=== PATIENT | male | born 1990 | race Caucasian/White ===

== ENCOUNTER 2019-12-02 14:57 | Emergency (ER) | payer BC ==
--- NOTE | 2019-12-02 15:26 | EDM.PDOC ---
ED HPI GENERAL MEDICAL PROBLEM - General Chief Complaint: Respiratory Problem Stated Complaint: RESPIRATORY ISSUES Time Seen by Provider: 12/02/19 15:03 Source of Information: Reports: Patient, Family History Limitations: Reports: No Limitations - History of Present Illness INITIAL COMMENTS - FREE TEXT/NARRATIVE: The patient presents with a cough, congestion, fever and body aches. This started a couple days ago but this morning he developed generalized body aches. He has a history of seizures and has not been taking his medications like he should because they cost so much. He has a scratchy throat but no ear pain. He has no chest pain, abdominal pain, nausea or vomiting. He does have some shortness of breath at times. He did get a flu shot this year. Onset: Gradual Duration: Day(s): Location: Reports: Generalized Quality: Reports: Ache, Other (Cramping) Severity: Moderate Improves with: Reports: None Worsens with: Reports: None Associated Symptoms: Reports: Cough, Fever/Chills, Shortness of Breath. Denies : Chest Pain, Headaches, Malaise, Nausea/Vomiting - Related Data Allergies Allergy/AdvReac Type Severity Reaction Status Date / Time No Known Allergies Allergy Verified 12/02/19 15:03 Home Meds: Home Meds Amphetamine Salts. 30 mg PO BID 12/02/19 [History] LORazepam 1 mg PO DAILY PRN 12/02/19 [History] Lisinopril [Zestril] 20 mg PO DAILY 12/02/19 [History] OXcarbazepine [Trileptal] 300 mg PO BID 12/02/19 [History] Past Medical History Cardiovascular History: Reports: Hypertension Neurological History: Reports: Seizure Psychiatric History: Reports: ADHD, Anxiety Social & Family History - Tobacco Use Smoking Status *Q: Current Every Day Smoker Years of Tobacco use: 13 Packs/Tins Daily: 1.5 - Recreational Drug Use Recreational Drug Use: No ED ROS GENERAL - Review of Systems Review Of Systems: See Below Constitutional: Reports: Fever, Chills HEENT: Reports: No Symptoms Respiratory: Reports: Shortness of Breath, Cough Cardiovascular: Reports: No Symptoms Endocrine: Reports: No Symptoms GI/Abdominal: Reports: No Symptoms : Reports: No Symptoms Musculoskeletal: Reports: No Symptoms ED EXAM, GENERAL - Physical Exam Exam: See Below Exam Limited By: No Limitations General Appearance: Alert, No Apparent Distress Ears: Normal External Exam Nose: Normal Inspection Throat/Mouth: Normal Inspection Head: Atraumatic, Normocephalic Neck: Normal Inspection, Supple, Non-Tender Respiratory/Chest: No Respiratory Distress, Lungs Clear, Normal Breath Sounds Cardiovascular: Regular Rate, Rhythm, No Edema, No Murmur GI/Abdominal: Soft, Non-Tender, No Organomegaly, No Mass Back Exam: Normal Inspection Extremities: Normal Inspection Course - Vital Signs Last Recorded V/S: Last Vital Signs Temp 99.2 F 12/02/19 15:03 Pulse 103 H 12/02/19 15:03 Resp 18 12/02/19 15:03 BP 153/78 H 12/02/19 15:03 Pulse Ox 97 12/02/19 15:03 - Orders/Labs/Meds Orders: Active Orders 24 hr Category Date Time Status CXR [Chest 2V] [CR] Stat Exams 12/02/19 15:20 Taken - Re-Assessments/Exams Free Text/Narrative Re-Assessment/Exam: 12/02/19 15:26 I ordered an influenza and a CXR. 12/02/19 16:11 His influenza is negative. His CXR shows a bronchitis versus early pneumonia. Departure - Departure Time of Disposition: 16:15 Disposition: Home, Self-Care 01 Condition: Good Clinical Impression: Pneumonia Qualifiers: Pneumonia type: due to unspecified organism Laterality: right Lung location: middle lobe of lung Qualified Code(s): J18.9 - Pneumonia, unspecified organism - Discharge Information *PRESCRIPTION DRUG MONITORING PROGRAM REVIEWED*: No *COPY OF PRESCRIPTION DRUG MONITORING REPORT IN PATIENT DEREK: No Referrals: PCP,None [Primary Care Provider] - Adriana Wang PA-C [Physician Spa Consultant] - 1 Week Forms: ED Department Discharge Additional Instructions: Take the zithromax 2 pills today and then 1 pill a day for 4 more days. Take the phenergan with codeine 5 to 10mls every 6 hours as needed for cough. Take your seizure meds as prescribed. When you are sick, you are more prone to having seizures. Please return if you are worse. Sepsis Event Note - Evaluation Sepsis Screening Result: No Definite Risk - Focused Exam Vital Signs: Vital Signs Temp Pulse Resp BP Pulse Ox 12/02/19 15:03 99.2 F 103 H 18 153/78 H 97 Date Exam was Performed: 12/02/19 Time Exam was Performed: 16:11 - My Orders Last 24 Hours: My Active Orders 12/02/19 15:20 CXR [Chest 2V] [CR] Stat - Assessment/Plan Last 24 Hours: My Active Orders 12/02/19 15:20 CXR [Chest 2V] [CR] Stat
--- NOTE | 2019-12-03 08:32 | CR ---
Chest: Two views of the chest were obtained. Comparison: No prior chest x-ray. Increased density is noted within the right midlung. Left lung is clear. Heart size and mediastinum are normal. Bony structures are unremarkable. Impression: 1. Right midlung pneumonia is felt to be present. Diagnostic code #3 This report was dictated in [place] Standard Time
== END 2019-12-02 16:35 | disposition home or self-care (01) ==
LOC: JD.ED 14:57
DX: J18.9 Pneumonia, unspecified organism (principal); F17.210 Nicotine dependence, cigarettes, uncomplicated
CPT/HCPCS: 71046; 71046-26; 87804; 99283; 99285-25

== ENCOUNTER 2020-03-11 20:09 | Emergency (ER) | payer BC ==
--- NOTE | 2020-03-11 21:12 | EDM.PDOC ---
ED HPI GENERAL MEDICAL PROBLEM - General Chief Complaint: Respiratory Problem Stated Complaint: SOB/EARS RINGING/POUNDING IN HEAD Time Seen by Provider: 03/11/20 20:35 Source of Information: Reports: Patient, RN Notes Reviewed History Limitations: Reports: No Limitations - History of Present Illness INITIAL COMMENTS - FREE TEXT/NARRATIVE: Patient is a 29-year-old male who presents to the ED for the evaluation of a few different complaints. The patient states that he does have a history of anxiety, and is taking hydroxyzine, and lorazepam as needed. He states he did see has normal provider, Dr. Gerardo Lopez today, and was started on the hydroxyzine, so this was his first dose. Patient states he thought maybe it helped a little bit, but he still feels like he cannot catch a deep breath. He notes he is a smoker as well. Patient characterizes this shortness of breath as a feeling of impending doom of sorts. The patient states that he has had these feelings present for mostly the whole week. He does note that he does have a girlfriend at home, and she is doing 3 weeks, he recently got laid off his job, so he has a lot of stress and anxiety at home. Patient notes that he does not have a history of any sort of lung issues, but he states that he does have some early heart disease in the father's side of the family, he notes that he thinks his father had a heart attack in his late 30s or early 40s , also his grandfather with the same patient states that he did have a sleep study done back on the [facility] where he used to live, and he was known to have sleep apnea, but he did not follow-up with this due to money. Patient denies any sort of sick contacts that he has had. The patient does note that he would like to be around for his child's , and her life, so he does seem to have a component of anxiety with this as well. Mid-Sternal Chest Pain Score (Numeric/FACES): 6 - Related Data Allergies Allergy/AdvReac Type Severity Reaction Status Date / Time No Known Allergies Allergy Verified 03/11/20 20:22 Home Meds: Home Meds Amphetamine Salts. 30 mg PO BID 12/02/19 [History] LORazepam 1 mg PO DAILY PRN 12/02/19 [History] Lisinopril [Zestril] 20 mg PO DAILY 12/02/19 [History] Escitalopram [Lexapro] 20 mg PO DAILY 03/11/20 [History] hydrOXYzine pamoate [Hydroxyzine Pamoate] 50 mg PO TID PRN 03/11/20 [History] hydrOXYzine pamoate [Hydroxyzine Pamoate] 100 mg PO BEDTIME 03/11/20 [History] Past Medical History Cardiovascular History: Reports: Hypertension Neurological History: Reports: Seizure Psychiatric History: Reports: ADHD, Anxiety - Past Surgical History HEENT Surgical History: Reports: Oral Surgery Other HEENT Surgeries/Procedures: tooth extraction Social & Family History - Tobacco Use Smoking Status *Q: Current Every Day Smoker Years of Tobacco use: 12 Packs/Tins Daily: 2 - Recreational Drug Use Recreational Drug Use: No ED ROS GENERAL - Review of Systems Review Of Systems: See Below Constitutional: Denies: Fever, Chills, Malaise Respiratory: Reports: Shortness of Breath (feels like he can't take a deep breath, is SpO2 on RA is 97%). Denies: Wheezing, Cough, Sputum Cardiovascular: Denies: Chest Pain GI/Abdominal: Denies: Abdominal Pain, Nausea, Vomiting Psychiatric: Reports: Anxiety. Denies: Agitation ED EXAM, GENERAL - Physical Exam Exam: See Below Exam Limited By: No Limitations General Appearance: Alert, WD/WN, No Apparent Distress, Anxious (pt is taking deep sigh type breaths throughout exam but does talk in complete sentences) Eye Exam: Bilateral Eye: EOMI, Normal Inspection, PERRL Ears: Normal External Exam Nose: Normal Inspection Throat/Mouth: Normal Inspection, Normal Lips, Normal Teeth, Normal Gums, Normal Oropharynx, Normal Voice, No Airway Compromise Head: Atraumatic, Normocephalic Neck: Normal Inspection Respiratory/Chest: No Respiratory Distress, Lungs Clear, Normal Breath Sounds, No Accessory Muscle Use, Chest Non-Tender Cardiovascular: Normal Peripheral Pulses, Regular Rate, Rhythm, No Edema, No Murmur Peripheral Pulses: 3+: Radial (L), Radial (R) GI/Abdominal: Normal Bowel Sounds, Soft, Non-Tender, No Distention, No Mass Extremities: Normal Inspection, Normal Capillary Refill Neurological: Alert, Oriented, Normal Cognition, No Motor/Sensory Deficits Psychiatric: Normal Affect, Normal Mood, Anxious (pt is visibly anxious, he is fidgety and takes many deep "sigh" breaths on exam. He is in no obvious respiratory distress.) Skin Exam: Warm, Dry, Intact, Normal Color, No Rash EKG INTERPRETATION EKG Date: 03/11/20 Time: 21:22 Rhythm: NSR Rate (Beats/Min): 81 [place]: Normal P-Wave: Present QRS: Normal ST-T: Normal QT: Normal Comparison: NA - No Prior EKG EKG Interpretation Comments: no acute ischemic change, reviewed by myself and Dr. Faulkner. Course - Vital Signs Last Recorded V/S: Last Vital Signs Temp 97.1 F 03/11/20 20:19 Pulse 103 H 03/11/20 20:19 Resp 19 03/11/20 20:19 BP Pulse Ox 96 03/11/20 20:19 - Orders/Labs/Meds Orders: Active Orders 24 hr Category Date Time Status EKG Documentation Completion [RC] STAT Care 03/11/20 20:57 Ordered Chest 2V [CR] Stat Exams 03/11/20 20:57 Ordered Labs: Laboratory Tests 03/11/20 03/11/20 03/11/20 Range/Units 21:07 21:07 21:07 WBC 19.83 H (4.23-9.07) K/mm3 RBC 4.92 (4.63-6.08) M/mm3 Hgb 15.1 (13.7-17.5) gm/dl Hct 45.3 (40.1-51.0) % MCV 92.1 (79.0-92.2) fl MCH 30.7 (25.7-32.2) pg MCHC 33.3 (32.2-35.5) g/dl RDW Std Deviation 46.1 H (35.1-43.9) fL Plt Count 341 H (163-337) K/mm3 MPV 9.4 (9.4-12.3) fl Neutrophils % (Manual) 71 H (40-60) % Band Neutrophils % 0 (0-10) % Lymphocytes % (Manual) 21 (20-40) % Atypical Lymphs % 0 % Monocytes % (Manual) 7 (2-10) % Eosinophils % (Manual) 1 (0.8-7.0) % Basophils % (Manual) 0 L (0.2-1.2) Platelet Estimate Adequate RBC Morph Comment Normal PT 9.6 L (9.7-12.0) SECONDS INR 0.93 APTT 28 (22-31) SECONDS D-Dimer, Quantitative 0.27 (0.19-0.50) mg/L Sodium 140 (136-145) mEq/L Potassium 3.8 (3.5-5.1) mEq/L Chloride 105 (98-107) mEq/L Carbon Dioxide 26 (21-32) mEq/L Anion Gap 12.8 (5-15) BUN 15 (7-18) mg/dL Creatinine 0.9 (0.7-1.3) mg/dL Est Cr Clr Drug Dosing 138.27 mL/min Estimated GFR (MDRD) > 60 (>60) mL/min BUN/Creatinine Ratio 16.7 (14-18) Glucose 121 H (74-106) mg/dL Calcium 8.7 (8.5-10.1) mg/dL Total Bilirubin 0.2 (0.2-1.0) mg/dL AST 23 (15-37) U/L ALT 39 (16-63) U/L Alkaline Phosphatase 100 (46-116) U/L Troponin I < 0.017 (0.00-0.056) ng/mL NT-Pro-B Natriuret Pep (0-125) pg/mL Total Protein 7.0 (6.4-8.2) g/dl Albumin 3.4 (3.4-5.0) g/dl Globulin 3.6 gm/dL Albumin/Globulin Ratio 0.9 L (1-2) /20 Range/Units 21:07 WBC (4.23-9.07) K/mm3 RBC (4.63-6.08) M/mm3 Hgb (13.7-17.5) gm/dl Hct (40.1-51.0) % MCV (79.0-92.2) fl MCH (25.7-32.2) pg MCHC (32.2-35.5) g/dl RDW Std Deviation (35.1-43.9) fL Plt Count (163-337) K/mm3 MPV (9.4-12.3) fl Neutrophils % (Manual) (40-60) % Band Neutrophils % (0-10) % Lymphocytes % (Manual) (20-40) % Atypical Lymphs % % Monocytes % (Manual) (2-10) % Eosinophils % (Manual) (0.8-7.0) % Basophils % (Manual) (0.2-1.2) Platelet Estimate RBC Morph Comment PT (9.7-12.0) SECONDS INR APTT (22-31) SECONDS D-Dimer, Quantitative (0.19-0.50) mg/L Sodium (136-145) mEq/L Potassium (3.5-5.1) mEq/L Chloride (98-107) mEq/L Carbon Dioxide (21-32) mEq/L Anion Gap (5-15) BUN (7-18) mg/dL Creatinine (0.7-1.3) mg/dL Est Cr Clr Drug Dosing mL/min Estimated GFR (MDRD) (>60) mL/min BUN/Creatinine Ratio (14-18) Glucose (74-106) mg/dL Calcium (8.5-10.1) mg/dL Total Bilirubin (0.2-1.0) mg/dL AST (15-37) U/L ALT (16-63) U/L Alkaline Phosphatase (46-116) U/L Troponin I (0.00-0.056) ng/mL NT-Pro-B Natriuret Pep < 5 (0-125) pg/mL Total Protein (6.4-8.2) g/dl Albumin (3.4-5.0) g/dl Globulin gm/dL Albumin/Globulin Ratio (1-2) - Re-Assessments/Exams Free Text/Narrative Re-Assessment/Exam: 03/11/20 21:16 Patient presents to the ED for some ongoing shortness of breath and other concerns. I do believe most of the patient's problems are stemming from anxiety , he states Ativan does not help much with this. I have ordered some labs, chest x-ray and EKG for further evaluation. 03/11/20 21:43 EKG demonstrates normal sinus rhythm with no acute abnormalities noted. Reviewed by myself and Dr. Faulkner. Labs have started to result, white blood cell count is elevated at 19.8, with 71% neutrophils and no bands. Patient's chest x -ray demonstrates no focal infiltrates or other abnormalities. 03/11/20 22:13 The patient's metabolic profile is normal, troponin is negative, BNP is not elevated, coagulation studies are essentially normal d-dimer 0.27, within normal limits. I do believe that the increased white blood cell count is more of a stress reaction in nature, I will discharge the patient home at this time and have him follow-up with his primary care provider next week, and have him continue to take the hydroxyzine as prescribed over the weekend to see if this does not help relieve his symptoms. Departure - Departure Time of Disposition: 22:14 Disposition: Home, Self-Care 01 Condition: Good Clinical Impression: Anxiety about health - Discharge Information *PRESCRIPTION DRUG MONITORING PROGRAM REVIEWED*: No *COPY OF PRESCRIPTION DRUG MONITORING REPORT IN PATIENT DEREK: No Instructions: Living With Anxiety Referrals: Gerardo Lopez Jr, MD [Primary Care Provider] - Forms: ED Department Discharge Additional Instructions: You were evaluated in ER today regarding your ongoing shortness of breath symptoms and suspected anxiety. Your laboratory evaluation at today's ER visit is essentially within normal limits, your white blood cell count was mildly elevated, but this is likely due to an acute stress reaction. This is a normal abnormal finding. Your EKG shows no sign of an HI or heart attack, and your chest x-ray was also within normal limits. There are no lab abnormalities that would suggest that there is any other major abnormality happening today. The symptoms you are feeling are most likely due to increased stress/anxiety/panic attacks in nature. You were started on hydroxyzine by your primary care provider, highly recommend you take these as prescribed over the next few days, and follow-up with him on Saturday if these medications do not seem to be helping much. Please return to the ER at any time if symptoms change or worsen. Sepsis Event Note - Evaluation Sepsis Screening Result: No Definite Risk - Focused Exam Vital Signs: Vital Signs Temp Pulse Resp Pulse Ox 03/11/20 20:19 97.1 F 103 H 19 96 Date Exam was Performed: 03/11/20 Time Exam was Performed: 22:13 - My Orders Last 24 Hours: My Active Orders 03/11/20 20:57 EKG Documentation Completion [RC] STAT Chest 2V [CR] Stat - Assessment/Plan Last 24 Hours: My Active Orders 03/11/20 20:57 EKG Documentation Completion [RC] STAT Chest 2V [CR] Stat
--- NOTE | 2020-03-13 10:49 | CR ---
Chest: 2 views of the chest were obtained. Comparison: Prior chest x-ray of 12/02/19. Heart size and mediastinum are normal. Lungs are clear with no acute parenchymal change. Bony structures are grossly intact. Impression: 1. Nothing acute is appreciated on 2 view chest x-ray. Diagnostic code #1 Study was dictated in MDT
== END 2020-03-11 22:32 | disposition home or self-care (01) ==
LOC: JD.ED 20:09
DX: F41.9 Anxiety disorder, unspecified (principal); I10 Essential (primary) hypertension; F17.210 Nicotine dependence, cigarettes, uncomplicated; Z79.899 Other long term (current) drug therapy
CPT/HCPCS: 36415; 71046; 71046-26; 80053; 83880; 84484; 85007; 85027; 85379; 85610; 85730; 93005; 93010; 99283; 99285-25

== ENCOUNTER 2020-05-03 19:12 | Emergency (ER) | payer BC, MEDICAID ==
--- NOTE | 2020-05-03 19:24 | EDM.PDOC ---
ED HPI GENERAL MEDICAL PROBLEM - General Chief Complaint: ENT Problem Stated Complaint: TOOTH PAIN Time Seen by Provider: 05/03/20 19:22 - History of Present Illness INITIAL COMMENTS - FREE TEXT/NARRATIVE: 29-year-old male presents the emergency room with a dental ache. This is been an on-and-off issue for him. The patient has not been able to get into see a dentist because the COVID situation. His is working on getting him to see 1 in [place] at this time. Generally the patient has poor dentition but is got a couple teeth that are just caused him all sorts of foods at this point. He is using Tylenol and Motrin for pain relief with modest success. Nothing is taking care of the swelling around the teeth.. Patient denies any fevers or chills has not had any significant facial swelling. Right Upper Tooth/Teeth Pain Score (Numeric/FACES): 4 - Related Data Allergies Allergy/AdvReac Type Severity Reaction Status Date / Time No Known Allergies Allergy Verified 05/03/20 19:22 Home Meds: Home Meds Amphetamine Salts. 30 mg PO BID 12/02/19 [History] LORazepam 1 mg PO DAILY PRN 12/02/19 [History] lisinopriL [Zestril] 20 mg PO DAILY 12/02/19 [History] Escitalopram [Lexapro] 20 mg PO DAILY 03/11/20 [History] hydrOXYzine pamoate [Hydroxyzine Pamoate] 50 mg PO TID PRN 03/11/20 [History] hydrOXYzine pamoate [Hydroxyzine Pamoate] 100 mg PO BEDTIME 03/11/20 [History] Amoxicillin 500 mg PO TID #30 tab 05/03/20 [Rx] Past Medical History Cardiovascular History: Reports: Hypertension Neurological History: Reports: Seizure Psychiatric History: Reports: ADHD, Anxiety - Past Surgical History HEENT Surgical History: Reports: Oral Surgery Other HEENT Surgeries/Procedures: tooth extraction ED ROS ENT - Review of Systems Review Of Systems: See Below Constitutional: Reports: No Symptoms HEENT: Reports: Dental Pain Respiratory: Reports: No Symptoms Cardiovascular: Reports: No Symptoms GI/Abdominal: Reports: No Symptoms ED EXAM, ENT - Physical Exam Exam: See Below Exam Limited By: No Limitations General Appearance: Alert, No Apparent Distress Ears: Normal External Exam Nose: Normal Inspection Mouth/Throat: Other (Has poor dentition in general. The 2 right upper teeth towards the rear back of the gum inflammation and tenderness around both of them. There is no obvious drainage at this point) Head: Atraumatic, Normocephalic Neck: Normal Inspection, Supple, Non-Tender. No: Lymphadenopathy (L), Lymphadenopathy (R) Respiratory/Chest: No Respiratory Distress, Lungs Clear, Normal Breath Sounds Cardiovascular: Normal Peripheral Pulses, Regular Rate, Rhythm, No Edema Course - Vital Signs Last Recorded V/S: Last Vital Signs Temp 36.6 C 05/03/20 19:19 Pulse 84 05/03/20 19:19 Resp 16 05/03/20 19:19 BP 141/93 H 05/03/20 19:19 Pulse Ox 96 05/03/20 19:19 - Re-Assessments/Exams Free Text/Narrative Re-Assessment/Exam: 05/03/20 19:36 We will get him on antibiotics and strongly encouraged him to get into see his dentist. Departure - Departure Time of Disposition: 19:39 Disposition: Home, Self-Care 01 Clinical Impression: Dental caries - Discharge Information Referrals: PCP,None [Primary Care Provider] - Forms: ED Department Discharge Additional Instructions: Return to the emergency room with any questions problems worsening symptoms. Take the antibiotics as directed. Follow-up with a dentist as soon as you can this is ultimately can be what fixes your problem. Sepsis Event Note - Focused Exam Vital Signs: Vital Signs Temp Pulse Resp BP Pulse Ox 05/03/20 19:19 36.6 C 84 16 141/93 H 96 Date Exam was Performed: 05/03/20 Time Exam was Performed: 19:34
== END 2020-05-03 19:55 | disposition home or self-care (01) ==
LOC: JD.ED 19:12
DX: K02.9 Dental caries, unspecified (principal); I10 Essential (primary) hypertension; F41.9 Anxiety disorder, unspecified; Z79.899 Other long term (current) drug therapy
CPT/HCPCS: 99282

== ENCOUNTER 2020-05-08 19:21 | Emergency (ER) | payer MEDICAID ==
[2020-05-08] MEDS ORDERED: cefTRIAXone 1 GM, Lidocaine 1% 2.1 ML IM SCH ×2 (19:45)
--- NOTE | 2020-05-08 19:58 | EDM.PDOC ---
ED HPI GENERAL MEDICAL PROBLEM - General Chief Complaint: ENT Problem Stated Complaint: TOOTH PAIN Time Seen by Provider: 05/08/20 19:33 Source of Information: Reports: Patient History Limitations: Reports: No Limitations - History of Present Illness INITIAL COMMENTS - FREE TEXT/NARRATIVE: TRIAGE NOTE -- Pt has a toothache, right upper molar; was seen eariler this week in ED for same issue. [ End ] As above. Risk factors considered to be cigarette smoking and dental neglect on patient's part. Dental issues are chronic. He was prescribed amoxicillin a few days ago and is still taking it. Pain is continuing to get worse. No fever. No foul odor. No facial swelling. No fever. No other symptom of acute medical illness otherwise. He is noted to be taking Chantix trying to quit smoking. Right Oral/Mouth Pain Score (Numeric/FACES): 10 - Related Data Allergies Allergy/AdvReac Type Severity Reaction Status Date / Time No Known Allergies Allergy Verified 05/08/20 19:29 Home Meds: Home Meds Amphetamine Salts. 30 mg PO BID 12/02/19 [History] LORazepam 1 mg PO DAILY PRN 12/02/19 [History] lisinopriL [Zestril] 20 mg PO DAILY 12/02/19 [History] Escitalopram [Lexapro] 20 mg PO DAILY 03/11/20 [History] hydrOXYzine pamoate [Hydroxyzine Pamoate] 50 mg PO TID PRN 03/11/20 [History] hydrOXYzine pamoate [Hydroxyzine Pamoate] 100 mg PO BEDTIME 03/11/20 [History] Amoxicillin 500 mg PO TID #30 tab 05/03/20 [Rx] Past Medical History Cardiovascular History: Reports: Hypertension Neurological History: Reports: Seizure Psychiatric History: Reports: ADHD, Anxiety - Past Surgical History HEENT Surgical History: Reports: Oral Surgery Other HEENT Surgeries/Procedures: tooth extraction, hard of hearing Social & Family History - Tobacco Use Smoking Status *Q: Heavy Tobacco Smoker Years of Tobacco use: 12 Packs/Tins Daily: 2 - Caffeine Use Caffeine Use: Reports: Coffee, Energy Drinks, Soda - Recreational Drug Use Recreational Drug Use: No ED ROS ENT - Review of Systems Review Of Systems: Comprehensive ROS is negative, except as noted in HPI. ED EXAM, ENT - Physical Exam Exam: See Below Exam Limited By: No Limitations General Appearance: Alert, WD/WN, No Apparent Distress Eye Exam: Bilateral Eye: EOMI, PERRL Ears: Normal External Exam, Hearing Loss (Chronic) Nose: Normal Inspection Mouth/Throat: Other (Number of missing teeth. Pain referable to #5 which is tender to light percussion. No discharge. No odontogenic soft tissue infection noted. No obvious dental abscess.) Head: Atraumatic, Normocephalic Neck: Normal Inspection, Supple Respiratory/Chest: No Respiratory Distress, Normal Breath Sounds, No Accessory Muscle Use Cardiovascular: Normal Peripheral Pulses, Regular Rate, Rhythm GI/Abdominal: Soft, Non-Tender Back: Normal Inspection Extremities: Normal Inspection Neurological: Alert, Oriented, Normal Cognition, Other (Hearing loss as noted, chronic.) Psychiatric: Normal Affect Skin: Warm, Dry Course - Vital Signs Last Recorded V/S: Last Vital Signs Temp 36.1 C 05/08/20 19:29 Pulse 98 05/08/20 19:29 Resp 20 05/08/20 19:29 BP 164/75 H 05/08/20 19:29 Pulse Ox 100 05/08/20 19:29 - Orders/Labs/Meds Orders: Active Orders 24 hr Category Date Time Status cefTRIAXone 1 GM with Lidocaine 1% 2.1 ML IM Med 05/08/20 19:45 Ordered cefTRIAXone [Rocephin] 1 gm Lidocaine 1% [Xylocaine 1%] 2.1 ml IM Q24H Medication Orders Ceftriaxone Sodium 1 gm/ (Lidocaine HCl 2.1 ml) 0 gm IM Q24H [facility] Last Admin: 05/08/20 19:51 Dose: 2.1 inj Meds: Medications Generic Name Dose Route Start Last Admin Trade Name Duane PRN Reason Stop Dose Admin Ceftriaxone Sodium 1 gm/ 0 gm 05/08/20 19:45 05/08/20 19:51 Lidocaine HCl 2.1 ml IM 2.1 inj Q24H [facility] Administration - Re-Assessments/Exams Free Text/Narrative Re-Assessment/Exam: 05/08/20 19:57 Disussed fully with patient. He apparently has access to dental services tomorrow. He was given a dose of Rocephin IM in the emergency department and strongly counseled to get this problem taken care of tomorrow. He assures me he will. Nursing staff is also providing patient with additional information should his initial plan for dental care not work out. Departure - Departure Time of Disposition: 19:59 Disposition: Home, Self-Care 01 Condition: Good Clinical Impression: Tooth ache, Dental neglect, Teeth missing, Elevated blood pressure reading, Tobacco abuse counseling - Discharge Information *PRESCRIPTION DRUG MONITORING PROGRAM REVIEWED*: Not Applicable *COPY OF PRESCRIPTION DRUG MONITORING REPORT IN PATIENT DEREK: Not Applicable Referrals: PCP,None [Primary Care Provider] - Additional Instructions: It is essential that you see a dentist tomorrow. ER staff is providing you with additional information if your own plans to see a dentist do not work out. You received a strong antibiotic by injection tonight which should cover any infectious process that is not being managed by your oral antibiotic. This antibiotic is effective for about 24 hours and you need to see a dentist tomorrow as noted. Cigarette smoking is strongly associated with dental problems and you are urged to stop smoking cigarettes. You are being treated for high blood pressure and your blood pressure is a little bit elevated in the ER. This may be related to your toothache or you may need to see your primary doctor for possible adjustment of your blood pressure medication. Return to ER for any fever facial swelling or any other symptom of acute medical illness which is troubling. Sepsis Event Note - Evaluation Sepsis Screening Result: No Definite Risk - Focused Exam Vital Signs: Vital Signs Temp Pulse Resp BP Pulse Ox 05/08/20 19:29 36.1 C 98 20 164/75 H 100 Date Exam was Performed: 05/08/20 Time Exam was Performed: 19:52 - My Orders Last 24 Hours: My Active Orders 05/08/20 19:45 cefTRIAXone 1 GM with Lidocaine 1% 2.1 ML IM cefTRIAXone [Rocephin] 1 gm Lidocaine 1% [Xylocaine 1%] 2.1 ml IM Q24H - Assessment/Plan Last 24 Hours: My Active Orders 05/08/20 19:45 cefTRIAXone 1 GM with Lidocaine 1% 2.1 ML IM cefTRIAXone [Rocephin] 1 gm Lidocaine 1% [Xylocaine 1%] 2.1 ml IM Q24H
== END 2020-05-08 20:06 | disposition home or self-care (01) ==
LOC: JD.ED 19:21
DX: K08.89 Other specified disorders of teeth and supporting structures (principal); K00.0 Anodontia; R03.0 Elevated blood-pressure reading, without diagnosis of hypertension; Z71.6 Tobacco abuse counseling; H91.90 Unspecified hearing loss, unspecified ear; I10 Essential (primary) hypertension; F41.9 Anxiety disorder, unspecified; F90.9 Attention-deficit hyperactivity disorder, unspecified type; F17.290 Nicotine dependence, other tobacco product, uncomplicated; Z79.899 Other long term (current) drug therapy
CPT/HCPCS: 96372; 99282; J0696; J2001; 99283

== ENCOUNTER 2020-07-04 22:57 | Emergency (ER) | payer MEDICAID ==
--- NOTE | 2020-07-05 00:19 | EDM.PDOC ---
ED HPI GENERAL MEDICAL PROBLEM - General Chief Complaint: Lower Extremity Injury/Pain Stated Complaint: INJURED RIGHT ANKLE Time Seen by Provider: 07/04/20 23:57 Source of Information: Reports: Patient History Limitations: Reports: Physical Impairment (Very hard of hearing) - History of Present Illness INITIAL COMMENTS - FREE TEXT/NARRATIVE: Mr. George is a very pleasant 29-year-old gentleman who now presents the ED after injuring his right ankle. He states that he was going down a few steps around 21:30 tonight, when he missed a step, twisting or rolling his right foot inward. He fell, abrading his left knee, and now presents to the ED with pain and swelling to the lateral aspect of his right ankle. He is otherwise uninjured. He states that he has sprained his right ankle previously, although he has never fractured it. The patient did not take any lqsx-[id number] or home remedies prior to coming to the ED. Here in the ED, the patient is found to be hemodynamically stable, afebrile, saturating 97% on room air. Other than his ankle injury, the patient denies recent fever, chills, sore throat, ear pain, nasal or sinus congestion, cough, dyspnea, chest pain, palpitations, nausea, vomiting, constipation, diarrhea, abdominal pain, urinary symptoms, recent weight gain or weight loss, recent bloody bowel movements or black bowel movements, recent joint aches, headaches, or rashes. The patient's PCP is Dr. Gerardo Lopez. Right Ankle Pain Score (Numeric/FACES): 7 - Related Data Allergies Allergy/AdvReac Type Severity Reaction Status Date / Time No Known Allergies Allergy Verified 05/08/20 19:29 Home Meds: Home Meds Amphetamine Salts. 30 mg PO BID 12/02/19 [History] LORazepam 1 mg PO DAILY PRN 12/02/19 [History] lisinopriL [Zestril] 20 mg PO DAILY 12/02/19 [History] Escitalopram [Lexapro] 20 mg PO DAILY 03/11/20 [History] Varenicline Tartrate [Chantix] 1 mg PO DAILY 07/04/20 [History] Past Medical History HEENT History: Reports: Hard of Hearing (profound) Cardiovascular History: Reports: Hypertension Neurological History: Reports: Seizure (untreated) Psychiatric History: Reports: ADHD, Anxiety, Panic Attack - Past Surgical History HEENT Surgical History: Reports: Naso-Sinus Surgery (deviated septum), Oral Surgery (dental extractions) Social & Family History - Tobacco Use Smoking Status *Q: Current Every Day Smoker Tobacco Use Within Last Twelve Months: Smokeless Tobacco (Occasionally chews) Years of Tobacco use: 13 Packs/Tins Daily: 1 Packs/Tins Daily Comment: Down from 2 ppd - Caffeine Use Caffeine Use: Reports: None - Alcohol Use Alcohol Use History: Yes Date/Time of Last Drink Comment: Alcoholic - sober since 2018 - Recreational Drug Use Recreational Drug Use: No - Living Situation & Occupation Living situation: Reports: Single, with Significant Other (Fianc), with Family (1 child) Occupation: Unemployed Review of Systems - Review of Systems Review Of Systems: Comprehensive ROS is negative, except as noted in HPI. ED EXAM, GENERAL - Physical Exam Exam: See Below Exam Limited By: No Limitations General Appearance: Alert, WD/WN, No Apparent Distress Extremities: Other (There is significant swelling, but without ecchymosis, erythema, or abrasion, over the lateral malleolus. No significant swelling elsewhere to the ankle. The patient has tenderness to palpation of the swollen soft tissue over his lateral malleolus, but no significant tenderness to his anterior or posterior syndesmoses, and no tenderness whatsoever to his medial malleolus. There is mild pain induced with PROM of the right ankle. The foot is not naturally inverted. Strong distal pulses; neurovascular status of the right lower extremity is intact.) Course - Vital Signs Last Recorded V/S: Last Vital Signs Temp 36.1 C 07/04/20 23:03 Pulse 83 07/04/20 23:03 Resp 16 07/04/20 23:03 BP 135/91 H 07/04/20 23:03 Pulse Ox 97 07/04/20 23:03 - Orders/Labs/Meds Orders: Active Orders 24 hr Category Date Time Status Ankle Min 3V Rt [CR] Stat Exams 07/04/20 23:12 Taken DME for Discharge [COMM] Stat Oth 07/05/20 00:14 Ordered - Re-Assessments/Exams Free Text/Narrative Re-Assessment/Exam: 07/05/20 00:13 4-view radiographs of the right ankle, ordered at triage, appear to demonstrate soft tissue swelling over the lateral malleolus, but no bony injuries, such as a fracture or dislocation seen. Formal read per the radiologist pending. The patient has sprained his right ankle. I will order a stirrup splint that I would like the patient to wear for the next 7 days. I would like the patient to ice and elevate his right ankle as much as possible over the next 2 days, to help minimize swelling, and take [id number] ibuprofen as needed for discomfort. I will refer him to Dr. Reinoso in the event that his ankle does not significantly improve within the next 2 weeks. Departure - Departure Time of Disposition: 00:15 Disposition: Home, Self-Care 01 Condition: Good Clinical Impression: Right ankle sprain - Discharge Information *PRESCRIPTION DRUG MONITORING PROGRAM REVIEWED*: Not Applicable *COPY OF PRESCRIPTION DRUG MONITORING REPORT IN PATIENT DEREK: Not Applicable Instructions: Ankle Sprain Referrals: Gerardo Lopez Jr, MD [Primary Care Provider] - Saulo Reinoso MD [Physician] - Forms: ED Department Discharge Additional Instructions: You were seen in the emergency room after twisting your ankle when missing a step going downstairs tonight. Work-up in the ER included x-rays of your right ankle which showed soft tissue swelling, but no broken bones or dislocations. Based on your history, physical exam, and ER x-rays, you have most likely sprained your right ankle. We recommend that you ice and elevate your right ankle as much as possible over the next 2 days, to help minimize swelling. Take [id number]-[id number] ibuprofen, 3 tablets (600 mg) up to every 8 hours, with food, as needed for discomfort. You have been placed into a stirrup splint. We recommend that you put this on each morning, and remove it at bedtime. We recommend that you wear it every day for the next 7 days, then start walking on your ankle as tolerated. You should expect to have some discomfort initially, but the discomfort should resolve within 2 weeks. If you are still having significant discomfort after 2 weeks, please follow-up with the Orthopedic Surgeon Dr. Saulo Reinoso, for further evaluation. If any other problems, please do not hesitate to return to the ER. Sepsis Event Note (ED) - Evaluation Sepsis Screening Result: No Definite Risk - Focused Exam Vital Signs: Vital Signs Temp Pulse Resp BP Pulse Ox 07/04/20 23:03 36.1 C 83 16 135/91 H 97 - My Orders Last 24 Hours: My Active Orders 07/05/20 00:14 DME for Discharge [COMM] Stat - Assessment/Plan Last 24 Hours: My Active Orders 07/05/20 00:14 DME for Discharge [COMM] Stat
--- NOTE | 2020-07-05 09:03 | CR ---
Right ankle: 4 views of the right ankle were obtained. Soft tissue swelling is identified. Ankle mortise is symmetric. Several small bony densities are seen off the medial ankle which have the appearance of old ununited avulsion injuries. No definite acute fracture, dislocation or other bony abnormality is appreciated. Impression: 1. Probable old avulsion injuries off the medial ankle. 2. Lateral soft tissue swelling. 3. No definite acute bony abnormality is appreciated. Diagnostic code #3 This report was dictated in MDT
== END 2020-07-05 00:25 | disposition home or self-care (01) ==
LOC: JD.ED 22:57
DX: S93.401A Sprain of unspecified ligament of right ankle, initial encounter (principal); I10 Essential (primary) hypertension; F41.0 Panic disorder [episodic paroxysmal anxiety]; F90.9 Attention-deficit hyperactivity disorder, unspecified type; F17.220 Nicotine dependence, chewing tobacco, uncomplicated; Z79.899 Other long term (current) drug therapy; X50.1XXA Overexertion from prolonged static or awkward postures, initial encounter
CPT/HCPCS: 29515; 73610-26-RT; 73610-RT; 99282; 99283-25

== ENCOUNTER 2020-09-08 08:45 | Emergency (ER) | payer SELFPAY ==
[2020-09-08] MEDS ORDERED: LORazepam 1 MG Tab PO ONE (09:17)
--- NOTE | 2020-09-08 10:03 | EDM.PDOC ---
ED HPI GENERAL MEDICAL PROBLEM - General Chief Complaint: Respiratory Problem Stated Complaint: SOB, EARS ARE RINGING Time Seen by Provider: 09/08/20 08:52 Source of Information: Reports: Patient History Limitations: Reports: No Limitations - History of Present Illness INITIAL COMMENTS - FREE TEXT/NARRATIVE: The patient presents with chest pain, shortness of breath and anxiety. He said he was woke up with an anxious feeling and he was short of breath. He also had some pressure in his chest. This happened a couple times last night and it has happened a few times in the past. He also had a headache with some ringing in his ears. He does have a history of anxiety in the past. He has no fever, chills, cough, congestion, runny nose, abdominal pain, nausea, vomiting or diarrhea. Onset: Gradual Duration: Day(s): (lat night) Location: Reports: Chest Quality: Reports: Pressure Severity: Moderate Improves with: Reports: None Worsens with: Reports: None Associated Symptoms: Reports: Chest Pain, Headaches, Shortness of Breath. Denies: Cough, Fever/Chills, Nausea/Vomiting - Related Data Allergies Allergy/AdvReac Type Severity Reaction Status Date / Time No Known Allergies Allergy Verified 09/08/20 09:06 Home Meds: Home Meds Amphetamine Salts. 30 mg PO BID 12/02/19 [History] LORazepam 1 mg PO DAILY PRN 12/02/19 [History] Escitalopram [Lexapro] 20 mg PO DAILY 03/11/20 [History] LORazepam [Ativan] 1 mg PO Q8HR PRN #15 tablet 09/08/20 [Rx] Past Medical History HEENT History: Reports: Hard of Hearing Cardiovascular History: Reports: Hypertension Neurological History: Reports: Seizure Psychiatric History: Reports: ADHD, Anxiety, Panic Attack - Past Surgical History HEENT Surgical History: Reports: Naso-Sinus Surgery, Oral Surgery Social & Family History - Tobacco Use Smoking Status *Q: Current Every Day Smoker Years of Tobacco use: 14 Packs/Tins Daily: 3 - Caffeine Use Caffeine Use: Reports: None - Recreational Drug Use Recreational Drug Use: No - Living Situation & Occupation Living situation: Reports: Single, with Significant Other (Fianc), with Family (1 child) Occupation: Unemployed ED ROS GENERAL - Review of Systems Review Of Systems: See Below Constitutional: Reports: No Symptoms HEENT: Reports: No Symptoms Respiratory: Reports: Shortness of Breath Cardiovascular: Reports: Chest Pain Endocrine: Reports: No Symptoms GI/Abdominal: Reports: No Symptoms : Reports: No Symptoms Musculoskeletal: Reports: No Symptoms Skin: Reports: No Symptoms Neurological: Reports: No Symptoms Psychiatric: Reports: Anxiety ED EXAM, GENERAL - Physical Exam Exam: See Below Exam Limited By: No Limitations General Appearance: Alert, No Apparent Distress Ears: Normal External Exam Nose: Normal Inspection Head: Atraumatic, Normocephalic Neck: Normal Inspection Respiratory/Chest: No Respiratory Distress, Lungs Clear, Normal Breath Sounds Cardiovascular: Regular Rate, Rhythm, No Edema, No Murmur GI/Abdominal: Soft, Non-Tender, No Organomegaly, No Mass Back Exam: Normal Inspection Extremities: Normal Inspection Course - Vital Signs Last Recorded V/S: Last Vital Signs Temp 97.6 F 09/08/20 09:03 Pulse 89 09/08/20 09:03 Resp 18 09/08/20 09:03 BP 145/85 H 09/08/20 09:03 Pulse Ox 96 09/08/20 09:03 - Orders/Labs/Meds Orders: Active Orders 24 hr Category Date Time Status Cardiac Monitoring [RC] . DIRECTED Care 09/08/20 09:17 Active EKG Documentation Completion [RC] STAT Care 09/08/20 09:17 Active Chest 2V [CR] Stat Exams 09/08/20 09:17 Taken Labs: Laboratory Tests 09/08/20 09/08/20 09/08/20 Range/Units 09:35 09:35 09:35 WBC 14.58 H (4.23-9.07) K/mm3 RBC 5.00 (4.63-6.08) M/mm3 Hgb 15.1 (13.7-17.5) gm/dl Hct 46.3 (40.1-51.0) % MCV 92.6 H (79.0-92.2) fl MCH 30.2 (25.7-32.2) pg MCHC 32.6 (32.2-35.5) g/dl RDW Std Deviation 46.4 H (35.1-43.9) fL Plt Count 356 H (163-337) K/mm3 MPV 9.5 (9.4-12.3) fl Neut % (Auto) 68.4 H (34.0-67.9) % Lymph % (Auto) 21.8 (21.8-53.1) % Jerome % (Auto) 8.1 (5.3-12.2) % Eos % (Auto) 1.3 (0.8-7.0) Baso % (Auto) 0.1 (0.1-1.2) % Neut # (Auto) 9.96 H (1.78-5.38) K/mm3 Lymph # (Auto) 3.18 (1.32-3.57) K/mm3 Jerome # (Auto) 1.18 H (0.30-0.82) K/mm3 Eos # (Auto) 0.19 (0.04-0.54) K/mm3 Baso # (Auto) 0.02 (0.01-0.08) K/mm3 D-Dimer, Quantitative 0.20 (0.19-0.50) mg/L Sodium 139 (136-145) mEq/L Potassium 4.2 (3.5-5.1) mEq/L Chloride 103 (98-107) mEq/L Carbon Dioxide 27 (21-32) mEq/L Anion Gap 13.2 (5-15) BUN 12 (7-18) mg/dL Creatinine 0.8 (0.7-1.3) mg/dL Est Cr Clr Drug Dosing 154.13 mL/min Estimated GFR (MDRD) > 60 (>60) mL/min BUN/Creatinine Ratio 15.0 (14-18) Glucose 114 H (74-106) mg/dL Calcium 8.8 (8.5-10.1) mg/dL Total Bilirubin 0.2 (0.2-1.0) mg/dL AST 40 H (15-37) U/L ALT 64 H (16-63) U/L Alkaline Phosphatase 99 (46-116) U/L Troponin I < 0.017 (0.00-0.056) ng/mL Total Protein 7.4 (6.4-8.2) g/dl Albumin 3.7 (3.4-5.0) g/dl Globulin 3.7 gm/dL Albumin/Globulin Ratio 1.0 (1-2) Meds: Medications Discontinued Medications Generic Name Dose Route Start Last Admin Trade Name Freq PRN Reason Stop Dose Admin Lorazepam 1 mg 09/08/20 09:17 09/08/20 09:41 Ativan PO 09/08/20 09:18 1 mg ONETIME ONE Administration - Re-Assessments/Exams Free Text/Narrative Re-Assessment/Exam: 09/08/20 10:03 I ordered an EKG, CXR, labs and ativan 1mg by mouth. 09/08/20 10:43 His EKG shows a NSR with no acute changes. His CXR looks good. His WBC is elevated at 14.58. I am not finding a good reason for why this is elevated. The patient was seen here earlier this year and it was elevated. I will have him follow up with his doctor. His D-dimer and troponin are negative. His AST is elevated at 40 and his ALT is elevated at 64. He feels better. I will discharge him home. Departure - Departure Time of Disposition: 10:45 Disposition: Home, Self-Care 01 Condition: Good Clinical Impression: Atypical chest pain, Anxiety Leukocytosis Qualifiers: Leukocytosis type: unspecified Qualified Code(s): D72.829 - Elevated white blood cell count, unspecified - Discharge Information *PRESCRIPTION DRUG MONITORING PROGRAM REVIEWED*: Not Applicable *COPY OF PRESCRIPTION DRUG MONITORING REPORT IN PATIENT DEREK: Not Applicable Prescriptions: LORazepam [Ativan] 1 mg PO Q8HR PRN #15 tablet PRN Reason: Anxiety Referrals: Gerardo Lopez Jr, MD [Primary Care Provider] - 1 Week Forms: ED Department Discharge Additional Instructions: Drink plenty of fluids. Take the ativan as needed every 8 hours for anxiety. Follow up with Dr Lopez. Please return if you are worse. Sepsis Event Note (ED) - Evaluation Sepsis Screening Result: No Definite Risk - Focused Exam Vital Signs: Vital Signs Temp Pulse Resp BP Pulse Ox 09/08/20 09:03 97.6 F 89 18 145/85 H 96 - My Orders Last 24 Hours: My Active Orders 09/08/20 09:17 Cardiac Monitoring [RC] . DIRECTED EKG Documentation Completion [RC] STAT Chest 2V [CR] Stat - Assessment/Plan Last 24 Hours: My Active Orders 09/08/20 09:17 Cardiac Monitoring [RC] . DIRECTED EKG Documentation Completion [RC] STAT Chest 2V [CR] Stat
--- NOTE | 2020-10-10 13:24 | CR ---
PROCEDURE INFORMATION: Exam: XR Chest, 2 Views Exam date and time: 09/08/2020 9:26 AM Age: 30 years old Clinical indication: Pain; Chest pressure TECHNIQUE: Imaging protocol: XR of the chest Views: 2 views. COMPARISON: DX Chest 2V 12/02/2019 3:21 PM FINDINGS: Lungs: The lungs are normally expanded and clear. Pleural space: Normal. Heart/Mediastinum: Normal heart and cardiomediastinal silhouette. Vasculature: Normal pulmonary vessel caliber. Normal aorta. Bones/joints: The bones are intact. IMPRESSION: No acute disease or suspicious finding. Thank you for allowing us to participate in the care of your patient. Dictated and Authenticated by: Pako Delvalle MD 10/10/2020 2:11 PM Central Time ([place] & [place]) [facility]
== END 2020-09-08 11:08 | disposition home or self-care (01) ==
LOC: JD.ED 08:45
DX: F41.9 Anxiety disorder, unspecified (principal); R07.89 Other chest pain; D72.829 Elevated white blood cell count, unspecified; I10 Essential (primary) hypertension; F90.9 Attention-deficit hyperactivity disorder, unspecified type; F17.210 Nicotine dependence, cigarettes, uncomplicated; Z79.899 Other long term (current) drug therapy
CPT/HCPCS: 36415; 71046; 80053; 84484; 85025; 85379; 93005; 99285; A9270; 93010; 99283